=== PATIENT | female | born 1965 | race Caucasian/White ===

== ENCOUNTER 2022-04-11 14:11 | Emergency (ER) | payer BC ==
[~2022-04-11] VITALS: Ht 170.2 cm; Wt 57.8 kg
[2022-04-11] MEDS ORDERED: CELE20TA PO (14:23)
[2022-04-11] MEDS ORDERED: LAMI1TAB8 PO (14:23)
[2022-04-11] MEDS ORDERED: RABIES IMMUNE GLOBULIN 1500 INTERNATIONAL UNIT/5ML VIAL (90375) IM.IMMUN ONE (20:25)
[2022-04-11] MEDS ORDERED: RABIES VACCINE HUMAN 2.5 INTERNATIONAL UNITS/ML VIAL (90675) IM.IMMUN ONE (20:25)
[2022-04-11] MEDS ORDERED: BOOSTRIX/ADACEL VACCINE (DIPHTH/PERTUSS/ACELL/TETANUS) 0.5ML SYR IM.IMMUN ONE (20:25)
[2022-04-11 20:59] VITALS: BP 102/67
== END 2022-04-11 21:35 | disposition home or self-care (01) ==
LOC: M ED 14:11
DX: Z23 Encounter for immunization (principal); Z20.3 Contact with and (suspected) exposure to rabies; W55.89XA Other contact with other mammals, initial encounter